=== PATIENT | male | born 1955 | race Caucasian/White ===

== ENCOUNTER 2019-11-26 08:15 | Emergency (ER) | payer BC ==
[2019-11-26] MEDS ORDERED: SODIUM CHLORIDE 1,000 ML IV STA (08:45)
[2019-11-26] MEDS ORDERED: KETOROLAC TROMETHAMINE 30 MG/1 ML VIAL IVPUSH ONE (08:45)
--- NOTE | 2019-11-26 08:55 | PDOC ---
History of Present Illness - General Chief Complaint: Pain Stated Complaint: LEFT ABDOMINAL PAIN Time Seen by Provider: 11/26/19 08:17 - History of Present Illness Initial Comments: 11/26/19 09:31 Chief complaint: Abdominal pain HPI: Left lower quadrant abdominal pain since Saturday, resolved briefly on Saturday but recurred, is intermittent, is worse with standing and walking, relieved by lying down. No nausea vomiting or diarrhea normal bowel movement yesterday no hematemesis melena or bloody stool. Review of systems: Has had a swollen painful left testicle for several days, but no dysuria frequency urgency hesitancy or hematuria. Denies fever/chills, URI symptoms, sore throat, cough, chest pain, shortness of breath, back or flank pain, urinary tract symptoms, visual or focal neurologic symptoms, unsteadiness of gait. Remainder of systems reviewed and negative Past medical history: Kidney stones in the distant past, 2 episodes 10 to 20 years ago. No other known GI or renal disease. Takes medication for high blood pressure, and [id number] diabetes Medications amlodipine losartan and metformin Social history: Active, no tobacco, social alcohol, none recently, no nonprescription drugs Family history reviewed and noncontributory Physical exam: Alert and oriented well-developed well-nourished mild distress due to left lower quadrant abdominal pain, but cheerful and cooperative Afebrile, vital signs normal No pallor or icterus. PERRLA, ENT clear Neck supple without bruit mass or nodes Lungs clear, full breath sounds bilaterally CV S1-S2 normal without murmur rub or gallop pulses full and symmetric no JVD or edema no bruits Abdomen nondistended. Bowel sounds normal. Mild to moderate left lower quadrant tenderness with deep palpation, with guarding and suggestion of rebound. No CVAT. : Left testicle is swollen, with a palpable tender epididymis and mild scrotal erythema. No hernias palpated Extremities no CCE Skin clear, no rash, adequate turgor and wet mucous membranes Neurological C2 to 12 intact. Strength full and symmetric. No focal sensorimotor deficits. Gait stable and unimpaired Impression: History and clinical findings are most consistent with acute diverticulitis. Other possibilities of recurrent renal colic, gastroenteritis/ colitis, or musculoskeletal pain. Also acute epididymitis which is probably a separate problem. Left lower quadrant pain does not necessarily radiate to the testicle, the testicle is enlarged and tender itself. Plan: CBC and chemistries, urinalysis, CT of the abdomen and pelvis, further evaluation and treatment depending on results Past History - Past Medical History Allergies/Adverse Reactions: Allergies Allergy/AdvReac Type Severity Reaction Status Date / Time No Known Allergies Allergy Verified 11/26/19 08:17 Home Medications: Ambulatory Orders Amlodipine Besylate [Norvasc -] 10 mg PO DAILY 11/26/19 Doxycycline Hyclate [Vibratab -] 100 mg PO BID #20 tablet 11/26/19 Losartan Potassium [Cozaar] 100 mg PO DAILY 11/26/19 Metformin HCl [Glucophage] 1,000 mg PO BID 11/26/19 Anemia: No Asthma: No Cancer: No Cardiac Disorders: No CVA: No COPD: No CHF: No Dementia: No Diabetes: Yes GI Disorders: No Disorders: Yes (Kidney stones) HTN: Yes Hypercholesterolemia: No Liver Disease: No Seizures: No Thyroid Disease: No - Surgical History Abdominal Surgery: No Appendectomy: No Cardiac Surgery: No Cholecystectomy: No Lung Surgery: No Neurologic Surgery: No Orthopedic Surgery: No - Psycho Social/Smoking Cessation Hx Smoking Status: No Smoking History: Never smoked Have you smoked in the past 12 months: No Number of Cigarettes Smoked Daily: 0 Information on smoking cessation initiated: No Hx Alcohol Use: No Drug/Substance Use Hx: No Substance Use Type: Alcohol Hx Substance Use Treatment: No *Physical Exam - Vital Signs Last Vital Signs Temp Pulse Resp BP Pulse Ox 99.8 F H 79 18 148/81 100 11/26/19 08:21 11/26/19 08:21 11/26/19 08:21 11/26/19 08:21 11/26/19 08:21 ED Treatment Course - LABORATORY CBC & Chemistry Diagram: 11/26/19 08:50 11/26/19 08:50 Medical Decision Making - Medical Decision Making 11/26/19 09:39 White blood count 19.8, consistent with diverticulitis. Sodium 130. Glucose over 200. Urinalysis with 2+ blood, 2+ ketones. 11/26/19 13:[address] is negative. No suggestion of diverticulitis or urinary tract abnormality. The patient's pain is likely referred from the inflammation of the left testicle, which clinically appears to be acute epididymitis Ultrasound shows good flow to both testicles, suggestion of enlarged and inflamed epididymis. Doxycycline begun. Patient has a urologist and will follow-up with Dr. Isaac as directed in approximately 1 week. He is aware that a prolonged course of antibiotics may be necessary. Return to ER if there is fever, increased pain, nausea, or vomiting. Comfortable and fully ambulatory upon discharge with his to follow-up as directed Discharge - Discharge Information Problems reviewed: Yes Clinical Impression/Diagnosis: Acute epididymitis Condition: Stable Disposition: HOME - Admission No - Additional Discharge Information Prescriptions: Doxycycline Hyclate [Vibratab -] 100 mg PO BID #20 tablet - Follow up/Referral Referrals: Xavier Mirza MD., [Staff Physician] - 1 week - Patient Discharge Instructions Patient Printed Discharge Instructions: DI for Epididymitis Additional Instructions: Warm compresses. Scrotal elevation with athletic supporter and padding for comfort Antibiotics Follow-up with urologist for further evaluation and treatment within 1 week. Return to the ER if there are fever, increased pain, body aches, nausea, vomiting. - Post Discharge Activity
[2019-11-26] MEDS ORDERED: KETOROLAC TROMETHAMINE 30 MG/1 ML VIAL ONE (08:59)
[2019-11-26 09:00] VITALS: BP 148/81; PULSE 79; TEMP 99.8; BMI 25.5
[2019-11-26 09:17] LABS: HEMATOCRIT 40.5 % (35.4-49); HEMOGLOBIN 14.1 GM/dl (11.7-16.9); MCH 31.4 pg (25.7-33.7); MCHC 34.9 g/dl (32.0-35.9); MEAN CELL VOLUME 89.9 fl (80-96); MEAN PLT VOLUME 7.7 fl (7.5-11.1); PLATELET COUNT 262 K/MM3 (134-434); RDW 12.3 % (11.9-15.9); WHITE BLOOD COUNT 19.8 K/mm3 (4.0-10.8)
[2019-11-26 09:23] LABS: ALBUMIN 3.8 g/dl (3.4-5.0); BILIRUBIN,TOTAL 1.4 mg/dl (0.2-1); CALCIUM 8.8 mg/dl (8.5-10); CREATININE 0.8 mg/dl (0.55-1.3); POTASSIUM 4.5 mmol/L (3.5-5.1); TOT PROT 7.1 g/dl (6.4-8.2)
[2019-11-26 09:58] LABS: PLATELET ESTIMATE ADEQUATE
[2019-11-26] MEDS ORDERED: DOXYCYCLINE HYCLATE 100 MG CAPSULE PO ONE ×2 (12:40→12:49)
== END 2019-11-26 13:46 | disposition home or self-care (01) ==
LOC: FER 08:15
PROC: 3E0333Z Introduction of Anti-inflammatory into Peripheral Vein, Percutaneous Approach (ICD-10-PCS; principal; 2019-11-26)
PROC: 3E0337Z Introduction of Electrolytic and Water Balance Substance into Peripheral Vein, Percutaneous Approach (ICD-10-PCS; 2019-11-26)
DX: N45.1 Epididymitis (principal); I10 Essential (primary) hypertension; E11.9 Type 2 diabetes mellitus without complications; Z87.442 Personal history of urinary calculi; Z79.84 Long term (current) use of oral hypoglycemic drugs
CPT/HCPCS: 36415; 74177-TC; 76870-TC; 80053; 81003; 81015; 85025; 99285-25; J7030

== ENCOUNTER 2023-04-20 10:00 | Emergency (ER) | payer BC ==
[2023-04-20 10:19] VITALS: BP 137/78; PULSE 86; RESP 18; TEMP 97.9; BMI 29.2
[2023-04-20 10:59] LABS: HEMATOCRIT 44.2 % (35.4-49); HEMOGLOBIN 15.5 G/dL (11.7-16.9); MCH 32.2 pg (25.7-33.7); MCHC 35.2 g/dl (32.0-35.9); MEAN CELL VOLUME 91.6 fl (80-96); MEAN PLT VOLUME 7.5 fl (7.5-11.1); PLATELET COUNT 269.3 10^3/uL (134-434); RBC 4.83 10^6/uL (4.00-5.60); RDW 13.5 % (11.9-15.9); WHITE BLOOD COUNT 13.2 10^3/uL (4.0-10.8)
[2023-04-20 11:01] LABS: PLATELET ESTIMATE ADEQUATE
[2023-04-20 11:08] LABS: ALBUMIN 4.4 g/dl (3.4-5.0); BILIRUBIN,TOTAL 0.8 mg/dl (0.2-1); BLOOD UREA NITROGEN 18.3 mg/dl (7-18); CALCIUM 9.5 mg/dl (8.5-10.1); POTASSIUM 4.4 mmol/L (3.5-5.1); SGOT/AST 14.9 U/L (15-37); SGPT/ALT 19.9 U/L (7-52); TOT PROT 7.2 g/dl (6.4-8.2)
== END 2023-04-20 12:55 | disposition home or self-care (01) ==
LOC: FER 10:00
DX: N23 Unspecified renal colic (principal)
CPT/HCPCS: 36415; 74176-TC; 80053; 81003; 81015; 85027; 99284-25

== ENCOUNTER 2023-09-01 10:18 | Emergency (ER) | payer OTHER ==
[2023-09-01 10:40] VITALS: BP 140/92; PULSE 99; RESP 16; TEMP 98.8; BMI 25.7
[2023-09-01] MEDS ORDERED: CLINDAMYCIN HCL 300 MG CAPSULE PO ONE (11:03)
[2023-09-01] MEDS ORDERED: CLINDAMYCIN HCL 150 MG CAPSULE (FP) ONE (11:08)
== END 2023-09-01 11:21 | disposition home or self-care (01) ==
LOC: FER 10:18
DX: F32.A Depression, unspecified (principal); L03.113 Cellulitis of right upper limb; L03.114 Cellulitis of left upper limb; L53.9 Erythematous condition, unspecified; R45.88 Nonsuicidal self-harm
CPT/HCPCS: 99283-25